=== PATIENT | female | born 1970 | race Caucasian/White ===

== ENCOUNTER → 2018-03-13 | Outpatient (CLI) | payer BC ==
[2018-03-13 10:55] LABS: ANION GAP 7 (5-13); BLOOD UREA NITROGEN 22 mg/dl (7-20); CARBON DIOXIDE 35 mmol/L (21-31); CHLORIDE 99 mmol/L (97-110); CREATININE 0.94 mg/dl (0.44-1.00); Estimated GFR > 60 mL/min (>60); GLUCOSE 120 mg/dl (70-220); SODIUM 141 mmol/L (135-144)
[2018-03-13 10:57] LABS: POTASSIUM 4.2 mmol/L (3.5-5.1)
== END | disposition home or self-care (01) ==
LOC: LAB 10:16
DX: R07.9 Chest pain, unspecified (principal)
CPT/HCPCS: 80048